=== PATIENT | male | born 1975 | race Caucasian/White ===

== ENCOUNTER 2022-07-31 21:04 | Emergency (ER) | payer MEDICARE ==
[~2022-07-31] VITALS: Ht 182.9 cm; Wt 95.3 kg
--- NOTE | 2022-07-31 23:30 | NUR ---
After being triaged, patient was placed back in the waiting room due to no beds available in the ER.
--- NOTE | 2022-08-01 01:55 | NUR ---
Patient placed in hallway of ER due to no beds available at this time.
[2022-08-01] MEDS ORDERED: ALBU6.7H9 INH (02:24)
[2022-08-01] MEDS ORDERED: CLON1TAB PO (02:24)
--- NOTE | 2022-08-01 02:32 | NUR ---
Mono hansen in ED - 08/01/22 at 0232 by [email or web address] Patient discharged to home in stable condition. Written and verbal after care instructions given. Patient verbalizes understanding of instructions. Stressed follow up or return to ER for worsening s/s.
[2022-08-01 02:33] VITALS: BP 130/99
== END 2022-08-01 02:39 | disposition home or self-care (01) ==
LOC: ER 21:04
DX: J44.9 Chronic obstructive pulmonary disease, unspecified (principal); F41.9 Anxiety disorder, unspecified; F17.210 Nicotine dependence, cigarettes, uncomplicated
CPT/HCPCS: A4663